=== PATIENT | male | born 1990 | race Caucasian/White ===

== ENCOUNTER 2019-02-05 19:25 | Emergency (ER) | payer BC ==
[~2019-02-05] VITALS: Ht 180.3 cm; Wt 90.7 kg
[2019-02-05 19:35] VITALS: BP_SYST 146
[2019-02-05] MEDS ORDERED: IBUPROFEN 600 MG TABLET PO ONE (20:00)
[2019-02-05 21:00] VITALS: BP_SYST 146
== END 2019-02-05 21:00 | disposition home or self-care (01) ==
LOC: SED 19:25
DX: S62.316A Displaced fracture of base of fifth metacarpal bone, right hand, initial encounter for closed fracture (principal); W01.0XXA Fall on same level from slipping, tripping and stumbling without subsequent striking against object, initial encounter; Y93.89 Activity, other specified; Y92.89 Other specified places as the place of occurrence of the external cause; Y99.8 Other external cause status
CPT/HCPCS: 99283